=== PATIENT | female | born 1990 | race Caucasian/White ===

== ENCOUNTER 2016-11-09 21:58 | Emergency (ER) | payer OTHER ==
[2016-11-09 22:43] LABS: Blood, Urine Negative (Negative); Clarity Hazy (Clear); Glucose, Urine (Dipstick) Negative (Negative); Leukocyte Negative (Negative); Nitrite Negative (Negative); Protein, Urine (Dipstick) 30 mg/dL (Neg-Trace); Specific Gravity, Urine 1.025 (1.005-1.030); Urobilinogen 0.2 mg/dL (0.2-1.0)
[2016-11-09 22:44] LABS: Bilirubin Negative (Negative)
[2016-11-09 22:53] LABS: RBC/HPF 0-3 HPF (0-3)
[2016-11-09 22:54] LABS: Bacteria/HPF 2+ HPF (None Seen); Other Microscopic Description 2+ MUCUS; Transitional Epithelial 0-3 HPF (0-3)
== END 2016-11-09 22:50 | disposition home or self-care (01) ==
LOC: BURERS 21:58
DX: O20.0 Threatened abortion (principal); Z3A.28 28 weeks gestation of pregnancy
CPT/HCPCS: 81003; 81015; 87086; 99284